=== PATIENT | female | born 1990 | race Asian ===

== ENCOUNTER 2022-04-22 08:20 | Inpatient (IN) | payer OTHER ==
[2022-04-22] MEDS ORDERED: CITRIC ACID/SODIUM CITRATE 30 ML UNIT-DOSE CUP PO ONE (08:58)
[2022-04-22] MEDS ORDERED: ELECTROLYTE-148 SOLN 1,000 ML IV SCH (09:00)
[2022-04-22] MEDS ORDERED: ELECTROLYTE-148 SOLN 500 ML IV ONE (09:15)
[2022-04-22 09:37] VITALS: BMI 27.4
[2022-04-22] MEDS ORDERED: IBUPROFEN 600 MG TABLET (FP) PO PRN ×2 (10:23→12:35)
[2022-04-22] MEDS ORDERED: ONDANSETRON 4 MG/2 ML VIAL IVPUSH PRN (10:23)
[2022-04-22] MEDS ORDERED: morphine SULFATE (PF) 1 MG/2 ML SYRINGE ONE (11:13)
[2022-04-22] MEDS ORDERED: ceFAZolin SODIUM 1 GM VIAL ONE ×2 (12:08)
[2022-04-22] MEDS ORDERED: OXYTOCIN 10 UNITS/ML VIAL ONE ×4 (12:08)
[2022-04-22] MEDS ORDERED: ACETAMINOPHEN 325 MG TABLET (FP) PO PRN (12:35)
[2022-04-22] MEDS ORDERED: METHYLERGONOVINE MALEATE 0.2 MG/1 ML AMP IM PRN (12:35)
[2022-04-22 13:58] LABS: CORD BASE EXCESS -6.4 mmol/L (0-2); CORD HCO3 21.8 mmHg (20-29); CORD PCO2 52.5 mmHg (30-78); CORD pH 7.236 (7.14-7.44)
[2022-04-22 13:59] LABS: CORD HCO3 23.6 mmHg (20-29); CORD PCO2 57.2 mmHg (30-78); CORD pH 7.234 (7.14-7.44)
[2022-04-22] MEDS: IBUPROFEN 800 MG/8 ML IJ IVPB PRN ×2 (14:59→23:00)
[2022-04-22] MEDS: CEFAZOLIN 1 GM in DEXTROSE 5%-WATER - 50 ML IVPB SCH ×2 (15:00→21:08)
[2022-04-22] MEDS: OXYTOCIN 20 UNITS in 0.9% NS 20 UNIT/1,000 ML INFUS.BAG IV SCH (15:00)
[2022-04-22] MEDS: ACETAMINOPHEN 325 MG TABLET (FP) PO PRN (20:09)
[2022-04-22] MEDS: SIMETHICONE 80 MG TAB.CHEW (FP) PO PRN (20:09)
[2022-04-23] MEDS ORDERED: oxyCODONE HCL 5 MG TABLET PO PRN (00:35)
[2022-04-23] MEDS: OXYTOCIN 20 UNITS in 0.9% NS 20 UNIT/1,000 ML INFUS.BAG IV SCH ×2 (03:00→12:45)
[2022-04-23] MEDS: SIMETHICONE 80 MG TAB.CHEW (FP) PO PRN ×2 (03:23→20:47)
[2022-04-23] MEDS: oxyCODONE HCL 5 MG TABLET PO PRN ×2 (03:25→20:45)
[2022-04-23] MEDS: CEFAZOLIN 1 GM in DEXTROSE 5%-WATER - 50 ML IVPB SCH ×2 (03:26→08:58)
[2022-04-23 08:18] LABS: BASO % 0.2 % (0-2.0); EOS % 0.8 % (0-4.5); HEMATOCRIT 29.7 % (32.4-45.2); HEMOGLOBIN 10.2 GM/dL (10.7-15.3); MCH 28.7 pg (25.7-33.7); MCHC 34.3 g/dl (32.0-36.0); MEAN CELL VOLUME 83.7 fl (80-96); MEAN PLT VOLUME 8.1 fl (7.5-11.1); MONO % 4.1 % (3.8-10.2); NEUT % 77.9 % (42.8-82.8); PLATELET COUNT 176 10^3/uL (134-434); RBC 3.55 M/mm3 (3.60-5.2); RDW 13.9 % (11.6-15.6); WHITE BLOOD COUNT 12.2 K/mm3 (4.0-10.0)
[2022-04-23] MEDS: ACETAMINOPHEN 325 MG TABLET (FP) PO PRN (08:59)
[2022-04-23] MEDS: ENOXAPARIN NA (PORCINE) 40 MG/0.4 ML DISP.SYRIN SQ SCH (09:00)
[2022-04-23] MEDS: IBUPROFEN 800 MG/8 ML IJ IVPB PRN (10:46)
[2022-04-23] MEDS ORDERED: BISACODYL 10 MG SUPP.RECT RC PRN (12:35)
[2022-04-23] MEDS: ACETAMINOPHEN 325 MG TABLET (FP) PO SCH ×2 (12:42→18:42)
[2022-04-23] MEDS: IBUPROFEN 600 MG TABLET (FP) PO SCH ×2 (15:18→22:07)
[2022-04-24] MEDS: ACETAMINOPHEN 325 MG TABLET (FP) PO SCH ×4 (02:33→20:19)
[2022-04-24] MEDS: IBUPROFEN 600 MG TABLET (FP) PO SCH ×4 (04:52→23:08)
[2022-04-24] MEDS: SIMETHICONE 80 MG TAB.CHEW (FP) PO PRN ×2 (09:58→20:20)
[2022-04-24] MEDS: ENOXAPARIN NA (PORCINE) 40 MG/0.4 ML DISP.SYRIN SQ SCH (09:58)
[2022-04-24] MEDS: DOCUSATE SODIUM 100 MG CAPSULE (FP) PO PRN (21:42)
[2022-04-25] MEDS: ACETAMINOPHEN 325 MG TABLET (FP) PO SCH ×4 (00:39→18:03)
[2022-04-25] MEDS: SIMETHICONE 80 MG TAB.CHEW (FP) PO PRN ×2 (00:42→06:09)
[2022-04-25] MEDS: IBUPROFEN 600 MG TABLET (FP) PO SCH ×4 (05:26→22:01)
[2022-04-25 08:30] LABS: BASO % 0.3 % (0-2.0); EOS % 1.7 % (0-4.5); HEMATOCRIT 29.4 % (32.4-45.2); HEMOGLOBIN 9.9 GM/dL (10.7-15.3); LYMPH % 14.5 % (8-40); MCH 28.2 pg (25.7-33.7); MCHC 33.8 g/dl (32.0-36.0); MEAN CELL VOLUME 83.5 fl (80-96); MEAN PLT VOLUME 7.9 fl (7.5-11.1); MONO % 3.3 % (3.8-10.2); NEUT % 80.2 % (42.8-82.8); PLATELET COUNT 251 10^3/uL (134-434); RBC 3.52 M/mm3 (3.60-5.2); RDW 13.6 % (11.6-15.6); WHITE BLOOD COUNT 12.9 K/mm3 (4.0-10.0)
[2022-04-25] MEDS: ENOXAPARIN NA (PORCINE) 40 MG/0.4 ML DISP.SYRIN SQ SCH (09:16)
[2022-04-25] MEDS: DOCUSATE SODIUM 100 MG CAPSULE (FP) PO PRN (15:50)
[2022-04-25 20:37] VITALS: TEMP 98.9
[2022-04-26] MEDS: ACETAMINOPHEN 325 MG TABLET (FP) PO SCH (00:03)
[2022-04-26] MEDS: IBUPROFEN 600 MG TABLET (FP) PO SCH ×2 (03:42→11:18)
[2022-04-26] MEDS ORDERED: ACETAMINOPHEN 325 MG TABLET (FP) PO SCH (06:16)
[2022-04-26] MEDS: ACETAMINOPHEN 500 MG TABLET (FP) PO SCH ×2 (06:23→11:57)
[2022-04-26 09:37] VITALS: BP 113/75; PULSE 85; RESP 18
[2022-04-26] MEDS: ENOXAPARIN NA (PORCINE) 40 MG/0.4 ML DISP.SYRIN SQ SCH (11:18)
== END 2022-04-26 16:15 | disposition home or self-care (01) | DRG 786 ==
LOC: JLDR 08:20 → J3W 13:45
PROVIDERS: ADMIT Obstetrics & Gynecology; ATTEND Obstetrics & Gynecology
PROC: 10D00Z1 Extraction of Products of Conception, Low, Open Approach (ICD-10-PCS; principal; 2022-04-22)
DX: O32.1XX0 Maternal care for breech presentation, not applicable or unspecified (principal); K83.1 Obstruction of bile duct; O26.62 Liver and biliary tract disorders in childbirth; O24.429 Gestational diabetes mellitus in childbirth, unspecified control; Z3A.38 38 weeks gestation of pregnancy; Z37.0 Single live birth
CPT/HCPCS: 36415; 36600; 82803; 85025; 88307-TC